=== PATIENT | female | born 1990 | race Caucasian/White ===

== ENCOUNTER 2017-09-13 03:32 | Emergency (ER) | payer OTHER ==
[~2017-09-13] VITALS: Ht 170.2 cm; Wt 63.5 kg
[2017-09-13 03:32] VITALS: BP_SYST 139
[2017-09-13 03:40] VITALS: BP_SYST 131
== END 2017-09-13 03:45 ==
LOC: SED 03:32
DX: Z02.89 Encounter for other administrative examinations (principal)